=== PATIENT | female | born 1970 | race Caucasian/White ===

== ENCOUNTER → 2017-07-22 | Outpatient (CLI) | payer OTHER, BC ==
[~2017-07-22] MED LIST: LISI5TAB3 PO; OMEP40CA PO; ONDA4TAB7 SL; ZNTT/150 PO
--- NOTE | 2017-07-22 17:20 | DIAGNOSTIC IMAGING REPORT ---
L KNEE 4 OR MORE CLINICAL HISTORY: 46 years-old Female presenting with LEFT KNEE PAIN. TECHNIQUE: Frontal, lateral, tunnel, and sunrise views of the left knee were obtained. COMPARISON: None. FINDINGS: No acute fracture or malalignment. Mild osteophytosis may be present at the patellofemoral articulation. No large knee joint effusion. No radiographic soft tissue abnormality. No patellar subluxation. IMPRESSION: 1. No acute osseous injury. 2. Mild degenerative change of the patellofemoral articulation. Electronically signed by: Garrett Hoffman M.D. 07/22/2017 5:18 PM Dictated Date/Time: 07/22/2017 5:17 PM
== END | disposition home or self-care (01) ==
LOC: C.RDSM 17:13
PROVIDERS: ATTEND Family Medicine
DX: M25.562 Pain in left knee (principal)

== ENCOUNTER → 2017-09-06 | Outpatient (CLI) | payer BC ==
--- NOTE | 2017-09-09 07:49 | MAMMOGRAPHY REPORT ---
BILATERAL DIGITAL SCREENING MAMMOGRAM TOMOSYNTHESIS WITH CAD: 09/06/2017 CLINICAL HISTORY: Routine screening examination. TECHNIQUE: Breast tomosynthesis in addition to standard 2D mammography was performed. Current study was also evaluated with a Computer Aided Detection (CAD) system. COMPARISON: Comparison is made to exams dated: 06/21/2016 mammogram, 05/24/2015 mammogram, 05/05/2014 ma mmogram, 02/12/2013 mammogram, 02/26/2011 mammogram, and 08/11/2009 mammogram - [facility] nter. BREAST COMPOSITION: There are scattered areas of fibroglandular density in both breasts. FINDINGS: A focal asymmetry in the 12:00 to 1:00 posterior left breast appears similar on all availa ble prior mammograms dating back to at least 08/11/2009, therefore likely benign. No new suspicious mass, architectural distortion or cluster of microcalcifications is seen. IMPRESSION: ACR BI-RADS CATEGORY 1: NEGATIVE There is no mammographic evidence of malignancy. A 1 year screening mammogram is recommended. The pa tient will receive written notification of the results. Approximately 10% of breast cancers are not detected with mammography. A negative mammographic report should not delay biopsy if a clinically suggestive mass is present. Yamilet Mukherjee M.D. ay/:09/07/2017 09:38:42 [employer] Lumber Straightener: Anupama PALAFOX)(M), [facility] letter sent: Normal 1/2 BI-RADS Code: ACR BI-RADS Category 1: Negative
== END | disposition home or self-care (01) ==
LOC: C.MAMM 07:25
PROVIDERS: ATTEND Family Medicine
DX: Z12.31 Encounter for screening mammogram for malignant neoplasm of breast (principal)

== ENCOUNTER 2018-06-10 11:50 | Emergency (ER) | payer BC, OTHER ==
[~2018-06-10] VITALS: Ht 165.1 cm; Wt 71.1 kg
[~2018-06-10 11:50] MED LIST changes: +RANI150T85 PO; -ZNTT/150 PO
[2018-06-10 11:59] VITALS: TEMP 37.3; Ht 165.1 cm; Wt 71.1 kg
[2018-06-10] MEDS ORDERED: SODIUM CHLORIDE 0.9% 1000ML 1,000 ML IV ONE (12:00)
[2018-06-10] MEDS ORDERED: NALOXONE HCL 0.4 MG/1 ML VIAL/CARP IV PRN (12:00)
[2018-06-10 12:15] LABS: BASO % 0.3 %; BASO ABS # 0.02 K/uL (0-0.2); EOS % 1.1 %; EOS ABS # 0.07 K/uL (0-0.5); HEMATOCRIT 41.2 % (37-47); HEMOGLOBIN 13.9 g/dL (12.0-16.0); IG# 0.02 K/uL (0.00-0.02); LYMPH % 26.7 %; LYMPH ABS # 1.71 K/uL (1.2-3.4); MEAN CELL VOLUME 96.7 fL (80-100); MEAN CORPUSCULAR HEMOGLOBIN 32.6 pg (25-34); MEAN CORPUSCULAR HGB CONC 33.7 g/dl (32-36); MEAN PLATELET VOLUME 9.3 fL (7.4-10.4); MONO ABS # 0.64 K/uL (0.11-0.59); NEUT % 61.6 %; NEUT ABS # 3.94 K/uL (1.4-6.5); PLATELET COUNT 265 K/uL (130-400); RED CELL DISTRIBUTION WIDTH CV 13.5 % (11.5-14.5); RED CELL DISTRIBUTION WIDTH SD 47.9 fL (36.4-46.3)
[2018-06-10 12:35] LABS: ALBUMIN 3.8 gm/dl (3.4-5.0); CALCIUM 8.3 mg/dl (8.5-10.1); CREATININE 0.88 mg/dl (0.60-1.20); POTASSIUM 3.6 mmol/L (3.5-5.1); TOTAL PROTEIN 7.5 gm/dl (6.4-8.2)
--- NOTE | 2018-06-10 12:44 | EMERGENCY ROOM VISIT NOTE ---
History First contact with patient: 11:54 Chief Complaint: CHEMICAL EXPOSURE Stated Complaint: EXPOSURE Nursing Triage Summary: Pt. arrives after possible exposure at [facility]. 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 Pt. c/o of dizziness and right face numbess, that she states, "is slowing wearing off". Pt. states she current feels soem pressure in her right shoulder and tingling in her left arm. Pt. denies pain, SOB, N/V at this time. History of Present Illness The patient is a 47 year old female who presents to the Emergency Room with complaints of a possible chemical exposure that occurred at work. The patient is a marketing information analyst. She responded to a call at the [facility]. She was taking care of a patient that possibly had a chemical exposure. She was removing the patient's closed. Approximately 15 minutes after removing the patient's close, she began to feel numbness and tingling. She also is experiencing dizziness. The symptoms have been dissipating since arrival to the ED. Review of Systems 10 system review performed and negative unless noted in HPI or below Social History Smoking Status: Never Smoker Marital Status: Occupation Status: employed Current/Historical Medications No Active Prescriptions or Reported Meds Physical Exam Vital Signs Date Time Temp Pulse Resp B/P (MAP) Pulse Ox O2 Delivery O2 Flow Rate FiO2 06/10/18 13:51 66 167/92 99 Room Air 06/10/18 13:35 70 17 100 06/10/18 13:31 178/91 06/10/18 13:20 76 23 96 06/10/18 13:15 154/90 06/10/18 13:15 72 16 154/90 99 Room Air 06/10/18 13:10 185/ 06/10/18 13:00 163/90 06/10/18 12:50 72 19 100 06/10/18 12:46 185/97 06/10/18 12:35 87 21 95 06/10/18 12:30 143/81 06/10/18 12:20 83 21 99 06/10/18 12:15 151/83 06/10/18 12:05 83 20 99 06/10/18 12:02 83 06/10/18 12:00 69 16 151/90 98 Room Air 06/10/18 11:59 37.3 84 16 163/93 98 Room Air 06/10/18 11:53 163/93 Physical Exam VITALS: Vitals are noted on the nurse's note and reviewed by myself. Vital signs stable. GENERAL: 47-year-old female, in no acute distress, nondiaphoretic, well- developed well-nourished. SKIN: The skin was without rashes, erythema, edema, or bruising. HEAD: Normocephalic atraumatic. EYES: Pupils equal round and reactive to light and accommodation. Conjunctivae without injection, sclerae without icterus. Extraocular movements intact. MOUTH: Mucous membranes moist. NECK: Supple without nuchal rigidity.. No JVD. HEART: Regular rate and rhythm without murmurs gallops or rubs. LUNGS: Clear to auscultation bilaterally without wheezes, rales or rhonchi. No accessory muscle use. ABDOMEN: Positive bowel sounds x 4.Soft, nontender, without organomegaly. No guarding or rebound tenderness. MUSCULOSKELETAL: No muscle atrophy, erythema, or edema noted. Strength 5/5 throughout. NEURO: Patient was alert and oriented to person place and time. Normal sensation to touch. No focal neurological deficits. Medical Decision & Procedures Laboratory Results 06/10/18 12:05 Red Blood Count 4.26, Mean Corpuscular Volume 96.7, Mean Corpuscular Hemoglobin 32.6, Mean Corpuscular Hemoglobin Concent 33.7, Mean Platelet Volume 9.3, Neutrophils (%) (Auto) 61.6, Lymphocytes (%) (Auto) 26.7, Monocytes (%) (Auto) 10.0, Eosinophils (%) (Auto) 1.1, Basophils (%) (Auto) 0.3, Neutrophils # (Auto ) 3.94, Lymphocytes # (Auto) 1.71, Monocytes # (Auto) 0.64, Eosinophils # (Auto ) 0.07, Basophils # (Auto) 0.02 06/10/18 12:05 Test 06/10/18 12:05 06/10/18 12:10 White Blood Count 6.40 K/uL (4.8-10.8) Red Blood Count 4.26 M/uL (4.2-5.4) Hemoglobin 13.9 g/dL (12.0-16.0) Hematocrit 41.2 % (37-47) Mean Corpuscular Volume 96.7 fL (80-100) Mean Corpuscular Hemoglobin 32.6 pg (25-34) Mean Corpuscular Hemoglobin Concent 33.7 g/dl (32-36) Platelet Count 265 K/uL (130-400) Mean Platelet Volume 9.3 fL (7.4-10.4) Neutrophils (%) (Auto) 61.6 % Lymphocytes (%) (Auto) 26.7 % Monocytes (%) (Auto) 10.0 % Eosinophils (%) (Auto) 1.1 % Basophils (%) (Auto) 0.3 % Neutrophils # (Auto) 3.94 K/uL (1.4-6.5) Lymphocytes # (Auto) 1.71 K/uL (1.2-3.4) Monocytes # (Auto) 0.64 K/uL (0.11-0.59) Eosinophils # (Auto) 0.07 K/uL (0-0.5) Basophils # (Auto) 0.02 K/uL (0-0.2) RDW Standard Deviation 47.9 fL (36.4-46.3) RDW Coefficient of Variation 13.5 % (11.5-14.5) Immature Granulocyte % (Auto) 0.3 % Immature Granulocyte # (Auto) 0.02 K/uL (0.00-0.02) Anion Gap 11.0 mmol/L (3-11) Est Creatinine Clear Calc Drug Dose 76.5 ml/min Estimated GFR () 89.4 Estimated GFR (Non- 77.2 BUN/Creatinine Ratio 17.9 (10-20) Calcium Level 8.3 mg/dl (8.5-10.1) Total Bilirubin 0.4 mg/dl (0.2-1) Aspartate Amino Transf (AST/SGOT) 16 U/L (15-37) Alanine Aminotransferase (ALT/SGPT) 25 U/L (12-78) Alkaline Phosphatase 46 U/L (45-117) Total Protein 7.5 gm/dl (6.4-8.2) Albumin 3.8 gm/dl (3.4-5.0) Globulin 3.7 gm/dl (2.5-4.0) Albumin/Globulin Ratio 1.0 (0.9-2) Urine Color YELLOW Urine Appearance CLEAR (CLEAR) Urine pH 5.0 (4.5-7.5) Urine Specific [place] 1.020 (1.000-1.030) Urine Protein NEG (NEG) Urine Glucose (UA) NEG (NEG) Urine Ketones NEG (NEG) Urine Occult Blood NEG (NEG) Urine Nitrite NEG (NEG) Urine Bilirubin NEG (NEG) Urine Urobilinogen NEG (NEG) Urine Leukocyte Esterase NEG (NEG) Urine Opiates Screen NEG (NEG) Urine Methadone, Qualitative NEG (NEG) Urine Barbiturates NEG (NEG) Urine Phencyclidine (PCP) Level NEG (NEG) Ur Amphetamine/Methamphetamine NEG (NEG) MDMA (Ecstasy) Screen NEG (NEG) Urine Benzodiazepines Screen NEG (NEG) Urine Cocaine Metabolite NEG (NEG) Urine Marijuana (THC) NEG (NEG) Medications Administered Medications (Trade) Dose Ordered Sig/Rigoberto Route Start Time Stop Time Status Last Admin Dose Admin Sodium Chloride 1,000 ml @ 999 mls/hr Q1H1M ONCE IV 06/10/18 12:00 06/10/18 13:00 DC 06/10/18 12:00 999 MLS/HR ECG Per My Interpretation Indication: other Rate (beats per minute): 86 Rhythm: normal sinus ED Course The patient underwent decontamination shower She was seen and examined. An EKG was performed. She was put on a monitor. She was hydrated with 1 L of normal saline. Labs were drawn The labs were reviewed. The patient was reassessed. She was feeling better. We discussed her workup. She voiced understanding, was comfortable being discharged home. I reviewed discharge instructions the patient. They voiced understanding and had no further questions. Medical Decision Differential diagnosis: Chemical exposure including fentanyl, heroin, and anthrax among others were entertained This patient is a 47-year-old female, marketing information analyst, that reports feeling lightheaded and numbness and tingling after being exposed to a patient. There is a possible chemical exposure at [place]. On exam, the patient was neurologically intact. She did not have any deficits. Her vital signs are stable. Her workup appears unremarkable, including her UDS. I believe she is stable to be discharged home with employee health follow-up. She was comfortable with this plan. She will return with any concerning symptoms. This chart was completed in part utilizing [employer] Voice Recognition software. Attempts were made to minimize the grammatical errors, random word insertions, pronoun errors and incomplete sentences. Any formal questions or concerns about the content, text or information contained within the body of this dictation should be directly addressed to the provider for clarification. Impression Primary Impression: Chemical exposure Additional Impression: Work-related illness Departure Information Dispostion Home / Self-Care Condition GOOD Prescriptions No Active Prescriptions or Reported Meds Referrals Mary Patten D.O. (PCP) Patient Instructions [facility] Additional Instructions Please drink plenty of fluids Resume normal activity Do not hesitate to return to the emergency department with any new, worsening or concerning symptoms It was a pleasure participating in your care today Problem Qualifiers
[2018-06-10 13:51] VITALS: BP 167/92; PULSE 66; O2SAT 99
== END 2018-06-10 14:12 | disposition home or self-care (01) ==
LOC: EDBD 11:50 → C.EDA 11:51
DX: Z77.098 Contact with and (suspected) exposure to other hazardous, chiefly nonmedicinal, chemicals (principal); Y92.149 Unspecified place in prison as the place of occurrence of the external cause; Y99.0 Civilian activity done for income or pay